=== PATIENT | male | born 1945 | race Caucasian/White ===

== ENCOUNTER 2017-08-03 14:11 | Emergency (ER) | payer OTHER ==
[~2017-08-03] VITALS: Ht 175.3 cm; Wt 132.4 kg
[2017-08-03 14:11] VITALS: BP 135/63
[~2017-08-03 14:11] MED LIST: ALBUTEROL2.5 MG/0.5 INH; AMBIEN 5 MG TABL5 M1; BAYCADRON0.5 MG/5 M PO; CARVEDILOL6.25 MG PO; CENTRUM COMPLE1 EACH PO; CENTRUM TABLET1 EACH PO; CIALIS5 MG PO; CLEOCIN HCL300 MG PO; COZAAR 50 MG TA50 M2 PO; DARVOCET-N 1001 EACH PO; DEMADEX20 MG PO; EPIPEN0.3 MG/0.3 IM; FLEXERIL PO; GABAPENTIN 100100 MG PO; GLIPIZIDE 10 MG10 M1 PO; GLIPIZIDE 10 MG10 MG PO; GLUCOPHAGE1000 MG PO; GLUCOPHAGE500 MG PO; HYDROCHLOROTHIA25 M2 PO; HYZAAR 100-251 EACH PO; KLOR-CON 1010 MEQ PO; LANTUS100 UNIT/M SUBQ; LIPITOR 20 MG T20 M1 PO; LIPITOR10 MG; MOBIC7.5 MG PO; NORCO 5-325 TA1 EACH PO; NORVASC 5 MG TAB5 MG PO; NORVASC10 MG PO; PIOGLITAZONE15 MG; PREDNISONE 20 M20 MG PO; PROVENTIL INH; REMERON15 M2 PO; TRADJENTA5 MG PO; VALIUM5 MG PO; VITAMIN D1000 UNI1 PO; VYTORIN 10-801 EACH PO; WELLBUTRIN SR150 MG PO
[2017-08-03] MEDS ORDERED: NYAMYC15 GM TOP (14:36)
[2017-08-03] MEDS ORDERED: TRAMADOL 50 MG50 MG PO (14:37)
[2017-08-04] MEDS ORDERED: METFORMIN HCL500 MG PO (22:20)
[2017-08-04] MEDS ORDERED: COZAAR 50 MG TA50 M2 PO (22:21)
[2017-08-04] MEDS ORDERED: KLOR-CON 1010 MEQ PO (22:21)
[2017-08-04] MEDS ORDERED: NOVOLOG100 UNIT/1 SUBQ (22:21)
[2017-08-04] MEDS ORDERED: NEURONTIN 300300 M1 PO (22:22)
[2017-08-04] MEDS ORDERED: LIPITOR80 MG PO (22:22)
[2017-08-04] MEDS ORDERED: DEMADEX20 MG PO (22:22)
[2017-08-04] MEDS ORDERED: CARVEDILOL3.125 MG PO (22:22)
[2017-08-04] MEDS ORDERED: VOLTAREN GEL 1100 G2 TOP (22:23)
[2017-08-04] MEDS ORDERED: GLYXAMBI 10 MG1 EACH PO (22:23)
[2017-08-04] MEDS ORDERED: DIFLUCAN200 MG PO (22:24)
[2017-08-04] MEDS ORDERED: DOXYCYCLINE 10100 MG PO (22:24)
[2017-08-04] MEDS ORDERED: CLOTRIMAZOLE-BE15 GM TOP (22:25)
== END 2017-08-03 15:00 | disposition home or self-care (01) ==
LOC: ER 14:11
DX: B35.6 Tinea cruris (principal); E11.9 Type 2 diabetes mellitus without complications; E66.9 Obesity, unspecified; I10 Essential (primary) hypertension; Z68.41 Body mass index [BMI] 40.0-44.9, adult

== ENCOUNTER 2017-08-04 22:07 | Emergency (ER) | payer OTHER ==
[~2017-08-04] VITALS: Ht 175.3 cm; Wt 132.4 kg
[~2017-08-04 22:07] MED LIST changes: +NYAMYC15 GM TOP; +TRAMADOL 50 MG50 MG PO
[2017-08-04] MEDS ORDERED: METFORMIN HCL500 MG PO (22:20)
[2017-08-04] MEDS ORDERED: NOVOLOG100 UNIT/1 SUBQ (22:21)
[2017-08-04] MEDS ORDERED: COZAAR 50 MG TA50 M2 PO (22:21)
[2017-08-04] MEDS ORDERED: KLOR-CON 1010 MEQ PO (22:21)
[2017-08-04] MEDS ORDERED: NEURONTIN 300300 M1 PO (22:22)
[2017-08-04] MEDS ORDERED: LIPITOR80 MG PO (22:22)
[2017-08-04] MEDS ORDERED: CARVEDILOL3.125 MG PO (22:22)
[2017-08-04] MEDS ORDERED: DEMADEX20 MG PO (22:22)
[2017-08-04] MEDS ORDERED: VOLTAREN GEL 1100 G2 TOP (22:23)
[2017-08-04] MEDS ORDERED: GLYXAMBI 10 MG1 EACH PO (22:23)
[2017-08-04] MEDS ORDERED: DOXYCYCLINE 10100 MG PO (22:24)
[2017-08-04] MEDS ORDERED: DIFLUCAN200 MG PO (22:24)
[2017-08-04] MEDS ORDERED: CLOTRIMAZOLE-BE15 GM TOP (22:25)
[2017-08-04 23:14] VITALS: BP 142/67
== END 2017-08-04 23:10 | disposition home or self-care (01) ==
LOC: ER 22:07
DX: R21 Rash and other nonspecific skin eruption (principal); I11.0 Hypertensive heart disease with heart failure; I50.9 Heart failure, unspecified; E11.9 Type 2 diabetes mellitus without complications; E66.9 Obesity, unspecified; Z79.4 Long term (current) use of insulin; Z88.1 Allergy status to other antibiotic agents; Z88.0 Allergy status to penicillin; Z88.5 Allergy status to narcotic agent; Z88.2 Allergy status to sulfonamides

== ENCOUNTER 2017-08-06 09:22 | Inpatient (IN) | payer OTHER ==
[~2017-08-06] VITALS: Ht 175.3 cm; Wt 134.3 kg
--- NOTE | ~2017-08-06 | HC ---
[facility] [place] [address] CONSULTATION Name: LOIS CRAIG JR Room #: 423-1 ADM IN M.R.#: [id number] Admission: 08/06/17 Attend Phys: Per London DO Discharge: Date of : 49 Report #: [id number] THIS REPORT FOR: //name// CC: Per Gibson MD DATE OF SERVICE: 08/06/2017 CHIEF COMPLAINT: Scrotal and groin intertrigo. HISTORY OF PRESENT ILLNESS: This is a 72-year-old male patient with a history of diabetes mellitus, admitted directly from his primary care physician, having a skin infection over the groin for the past couple of weeks. He has had a topical antibiotics and creams, has had an increasing amount of pain, bleeding and redness. He was recently started on SGL2 medication about a month ago. CURRENT ALLERGIES: Include CIPROFLOXACIN, CLINDAMYCIN, CODEINE, ERYTHROMYCIN, PENICILLIN, and SULFA. PAST MEDICAL HISTORY: Positive for diabetes, obesity, hypertension, and congestive heart failure. SOCIAL HISTORY: Negative for alcohol, tobacco, or drug use. FAMILY HISTORY: Noncontributory. MEDICATIONS: Have been reviewed in the MAR. REVIEW OF SYSTEMS: CONSTITUTIONAL: The patient denies fever, chills or weight loss. NEUROLOGICAL: The patient denies focal weakness, numbness, or tingling. EYES: The patient denies visual changes, redness or drainage. ENT: The patient denies earache, nasal drainage, or sore throat. CARDIOVASCULAR: The patient denies chest pain or palpitations. PULMONARY: The patient denies cough or shortness of breath. GASTROINTESTINAL: The patient denies nausea, vomiting, diarrhea, or abdominal pain. ORTHOPEDIC: The patient denies pain or swelling of the extremities. SKIN: The patient does complain of significant dermatitis on the groin region. PSYCHIATRIC: The patient denies anxiety, irritability, and depression. ENDOCRINE: The patient denies heat or cold intolerance, polydipsia, polyphagia, and polyuria. Other 14-point review of systems are negative. [address] [address] CONSULTATION Name: LOIS CRAIG Room #: 423-1 [facility] IN M.R.#: [id number] Admission: 08/06/17 Attend Phys: Per London DO Discharge: Date of : 49 Report #: [id number] PHYSICAL EXAMINATION: VITAL SIGNS: At this time include pulse 52, respiratory rate 20, blood pressure , temperature 97.3, pulse oximetry is 98% on room air. GENERAL: This is a chronically ill-appearing male patient who appears to be in no distress. HEENT: Head normocephalic. Nose and throat are clear. NECK: Supple. LUNGS: Clear. HEART: Regular rhythm. ABDOMEN: Soft. Bowel sounds are present. GENITOURINARY: Examination of the genitourinary region demonstrates significant erythema to the scrotum, to the groin area bilaterally consistent with a yeast type dermatitis. No open ulcerations are noted. EXTREMITIES: Without clubbing or cyanosis, no open ulcerations there. NEUROLOGIC: The patient is alert, oriented and appropriate. LABORATORY DATA: Includes sodium 138, potassium 4.4, chloride 103, CO2 of 28, BUN 28, creatinine 1.1, glucose elevated at 206. SGOT is 18, total protein 0.6, calcium is 9.4, albumin 3.7. White blood cell count 9.5 with a hemoglobin of 13.7, hematocrit of 41.6, platelet count 272,000. CLINICAL IMPRESSION: 1. Cellulitis of the groin. 2. Candidal intertrigo. 3. Type 2 diabetes mellitus. 4. Obesity. 5. History of congestive heart failure. RECOMMENDATIONS: At this point in time, the patient will be seen by infectious disease. We will recommend topical Lotrisone as well as morphine, Silvadene compound for both control of pain, swelling and topical antifungal effect. He is currently on oral fluconazole, which is appropriate. We would recommend holding SGL2 medication at this time. I do appreciate being asked to see him in consultation. <ELECTRONICALLY SIGNED> By: Vipul Rodriges MD 08/07/17 [id number] Vipul Rodriges MD /nt
--- NOTE | ~2017-08-06 | HC ---
[facility] [place] [address] CONSULTATION Name: LOIS CRAIG Room #: 423-1 ADM IN M.R.#: [id number] Admission: 08/06/17 Attend Phys: Per London DO Discharge: Date of : 49 Report #: [id number] THIS REPORT FOR: //name// CC: Per Menard REASON FOR CONSULTATION: I was asked to evaluate concerning intertrigo to the groin. HISTORY OF PRESENT ILLNESS: The patient is a 72-year-old diabetic who was recently placed on Januvia for his diabetes. Since then, he has noticed increased dysuria as well as developed rash to his groin. He has tried multiple antifungal creams, fluconazole and doxycycline without benefit. Because of increased pain and persistent rash, he was hospitalized. No fever, chills, or sweats. No other new medications or antibiotics prior to this onset. ALLERGIES: CIPROFLOXACIN, CLINDAMYCIN, CODEINE, ERYTHROMYCIN, PENICILLIN, and SULFA. MEDICATIONS: As noted on his MAR, which were reviewed. PAST MEDICAL HISTORY: Obesity, hypertension, congestive heart failure, asthma, chronic kidney disease, COPD, diabetes with peripheral neuropathy, arthroscopic knee surgery, and carpal tunnel release. FAMILY HISTORY: Noncontributory. SOCIAL HISTORY: Nonsmoker, no significant alcohol intake. REVIEW OF SYSTEMS: No nausea, vomiting, diarrhea, dysuria or frequency. No cough or sputum production. PHYSICAL EXAMINATION: VITAL SIGNS: Afebrile and hemodynamically stable. GENERAL: Alert, cooperative, and pleasant, in no acute distress. Moderately obese. HEENT: Unremarkable. CHEST: Clear. HEART: Regular. ABDOMEN: Soft, nontender, no hepatosplenomegaly or mass. EXTERNAL GENITALIA: Unremarkable. GROIN: Noticed extensive intertrigo involving groin and scrotum. Several satellite lesions are evident. LABORATORY STUDIES: Pending. IMPRESSION: A 72-year-old with fairly advanced intertrigo involving the groin. [facility] [address] [place] [address] CONSULTATION Name: LOIS CRAIG Room #: 423-1 ADM IN .R.#: [id number] Admission: 08/06/17 Attend Phys: Per London DO Discharge: Date of : 49 Report #: [id number] Recommend systemic and topical treatment. Keep the area as dry as possible, otherwise. Control blood glucose. May wish to discontinue Januvia at this time. <ELECTRONICALLY SIGNED> By: Po Hyatt MD 08/07/17 1317 [id number] Po Hyatt MD /nt
[~2017-08-06 09:22] MED LIST changes: +CARVEDILOL3.125 MG PO; +CLOTRIMAZOLE-BE15 GM TOP; +DIFLUCAN200 MG PO; +DOXYCYCLINE 10100 MG PO; +GLYXAMBI 10 MG1 EACH PO; +LIPITOR80 MG PO; +METFORMIN HCL500 MG PO; +NEURONTIN 300300 M1 PO; +NOVOLOG100 UNIT/1 SUBQ; +VOLTAREN GEL 1100 G2 TOP
[2017-08-06 09:58] VITALS: BP 164/89
[2017-08-06 11:23] LABS: ABSOLUTE NEUTROPHILS 7.5 thou/uL (1.4-8.2); BASOPHILS 0.5 % (0.0-2.0); EOSINOPHILS 0.3 % (0.0-3.0); HEMATOCRIT 41.6 % (42.0-52.0); HEMOGLOBIN 13.7 gm/dL (14.0-18.0); MANUAL DIFF NO; MCH 27.1 pg (26.0-34.0); MCHC 32.8 g/dL (28.0-37.0); MCV 82.5 fL (80.0-100.0); MONOCYTES 6.5 % (1.0-8.0); PLATELET COUNT 272 thou/uL (150-400); POLYS 78.7 % (36.0-66.0); RBC 5.04 mil/uL (4.50-6.00); RDW 14.3 % (10.5-14.5); WBC 9.5 thou/uL (4.0-11.0)
[2017-08-06 11:31] LABS: CALCIUM 9.4 mg/dL (8.5-10.1); CREATININE 1.1 mg/dL (0.7-1.3); POTASSIUM 4.4 mmol/L (3.5-5.1)
[2017-08-06 16:00] VITALS: BP 124/68
[2017-08-06 16:06] LABS: URINE BILIRUBIN NEGATIVE (Negative); URINE BLOOD NEGATIVE (Negative); URINE COLOR YELLOW; URINE GLUCOSE-RANDOM* 3+ (Negative); URINE KETONES NEGATIVE (Negative); URINE LEUKOCYTES-REFLEX NEGATIVE (Negative); URINE PROTEIN (DIPSTICK) NEGATIVE (Negative); URINE UROBILINOGEN 0.2 E.U./dl (0.2-1.0)
[2017-08-06 21:05] VITALS: BP 151/62
[2017-08-07 02:08] LABS: GLYCOHEMOGLOBIN (HGB A1C) 7.6 % (4.8-5.6)
[2017-08-07 03:20] VITALS: BP 146/83
[2017-08-07 05:57] LABS: ABSOLUTE NEUTROPHILS 7.7 thou/uL (1.4-8.2); BASOPHILS 0.6 % (0.0-2.0); EOSINOPHILS 0.2 % (0.0-3.0); HEMATOCRIT 41.8 % (42.0-52.0); HEMOGLOBIN 13.8 gm/dL (14.0-18.0); LYMPHOCYTES 16.5 % (24.0-44.0); MCH 27.4 pg (26.0-34.0); MCHC 32.9 g/dL (28.0-37.0); MCV 83.2 fL (80.0-100.0); MONOCYTES 6.2 % (1.0-8.0); PLATELET COUNT 277 thou/uL (150-400); POLYS 76.5 % (36.0-66.0); RBC 5.03 mil/uL (4.50-6.00); RDW 14.4 % (10.5-14.5); WBC 10.1 thou/uL (4.0-11.0)
[2017-08-07 05:58] LABS: MANUAL DIFF NO
[2017-08-07 06:08] LABS: CALCIUM 9.5 mg/dL (8.5-10.1); CREATININE 1.2 mg/dL (0.7-1.3); POTASSIUM 4.5 mmol/L (3.5-5.1)
[2017-08-07 08:25] VITALS: BP 155/70
[2017-08-07 16:23] VITALS: BP 171/77
[2017-08-07 19:41] VITALS: BP 143/63
[2017-08-08 03:40] VITALS: BP 168/62
[2017-08-08 06:27] LABS: ABSOLUTE NEUTROPHILS 10.8 thou/uL (1.4-8.2); EOSINOPHILS 0.1 % (0.0-3.0); HEMATOCRIT 44.9 % (42.0-52.0); HEMOGLOBIN 14.5 gm/dL (14.0-18.0); LYMPHOCYTES 14.4 % (24.0-44.0); MCH 26.8 pg (26.0-34.0); MCHC 32.4 g/dL (28.0-37.0); MCV 82.8 fL (80.0-100.0); MONOCYTES 5.3 % (1.0-8.0); PLATELET COUNT 309 thou/uL (150-400); POLYS 79.2 % (36.0-66.0); RBC 5.42 mil/uL (4.50-6.00); RDW 14.2 % (10.5-14.5); WBC 13.7 thou/uL (4.0-11.0)
[2017-08-08 06:35] LABS: CALCIUM 9.5 mg/dL (8.5-10.1); CREATININE 1.3 mg/dL (0.7-1.3); POTASSIUM 4.6 mmol/L (3.5-5.1)
[2017-08-08 07:03] LABS: MANUAL DIFF NO
[2017-08-08 07:55] VITALS: BP 183/72
[2017-08-08] MEDS ORDERED: DIFLUCAN200 MG PO (10:19)
[2017-08-08] MEDS ORDERED: LANTUSSOLASTAR SUBQ (10:20)
[2017-08-08] MEDS ORDERED: TRAMADOL 50 MG50 MG PO (10:20)
[2017-08-08] MEDS ORDERED: CLOTRIMAZOLE-BE15 GM TOP (10:21)
[2017-08-08 12:14] VITALS: BP 183/72
== END 2017-08-08 13:02 | disposition home or self-care (01) | DRG 602 ==
LOC: 4E 09:22
PROVIDERS: Family Medicine
DX: L03.314 Cellulitis of groin (principal); E43 Unspecified severe protein-calorie malnutrition; I13.0 Hypertensive heart and chronic kidney disease with heart failure and stage 1 through stage 4 chronic kidney disease, or unspecified chronic kidney disease; Z68.41 Body mass index [BMI] 40.0-44.9, adult; J44.9 Chronic obstructive pulmonary disease, unspecified; E66.9 Obesity, unspecified; I50.9 Heart failure, unspecified; L30.4 Erythema intertrigo; N18.9 Chronic kidney disease, unspecified; E11.22 Type 2 diabetes mellitus with diabetic chronic kidney disease; Z88.0 Allergy status to penicillin; Z88.2 Allergy status to sulfonamides; Z88.1 Allergy status to other antibiotic agents; Z88.8 Allergy status to other drugs, medicaments and biological substances; Z79.4 Long term (current) use of insulin
CPT/HCPCS: 10783

== ENCOUNTER → 2017-08-19 | Outpatient (CLI) | payer OTHER ==
[~2017-08-19] MED LIST changes: +LANTUSSOLASTAR SUBQ
== END ==
LOC: HYPER 06:58
DX: L03.314 Cellulitis of groin (principal); E11.9 Type 2 diabetes mellitus without complications; I50.40 Unspecified combined systolic (congestive) and diastolic (congestive) heart failure; G47.30 Sleep apnea, unspecified; B35.6 Tinea cruris; M19.90 Unspecified osteoarthritis, unspecified site; F41.9 Anxiety disorder, unspecified